=== PATIENT | male | born 1955 | race Two or more races ===

== ENCOUNTER 2024-07-20 09:59 | Emergency (ER) | payer MEDICARE, SELFPAY ==
[2024-07-20 10:00] VITALS: BMI 25.2
[2024-07-20 10:50] VITALS: BP 125/86; PULSE 69; RESP 16; TEMP 36.6; O2SAT 100; BMI 23.7
--- NOTE | 2024-07-20 10:50 | XR_ITS ---
Examination: Duplex scan of the lower extremity, unilateral left complete Date and time of exam: July 20, 2024 1243 hours INDICATIONS: Onset left leg pain beginning 3 days ago Technique: Duplex scan of the extremity veins using B-mode/grayscale imaging and Doppler spectral analysis and color flow Attention is directed to internal echogenicity, compression and augmentation involving these veins, color flow assessment, spectral analysis Findings: Major deep venous structures in the extremity demonstrate normal course and caliber. There is no evidence of deep vein thrombosis. Normal color flow and spectral analysis Impression: Negative for DVT..
--- NOTE | 2024-07-20 10:50 | XR_ITS ---
Examination: Foot, right, 3 views Technique: AP, oblique, lateral views foot, 3 views Date and time of exam: July 20, 2024 1102 hours INDICATIONS: Right foot swelling and pain beginning 3 days ago. FINDINGS: Moderate osteopenia Soft tissue vascular calcification Moderate narrowing first metatarsophalangeal joint No fracture No cortical bone destruction Mild to moderate osteoarthritis tibiotalar joint Mild osteoarthritis intertarsal joints including talonavicular joint No erosive arthritis IMPRESSION: Moderate osteopenia Moderate narrowing first metatarsophalangeal joint Mild to moderate osteoarthritis tibiotalar joint Mild osteoarthritis intertarsal joints including talonavicular joint
--- NOTE | 2024-07-20 10:50 | XR_ITS ---
EXAMINATION: Ankle, left 3 views . Technique: Ankle AP, oblique, lateral 3 views Date and time of exam: July 20, 2024 1102 hours INDICATIONS: Ankle swelling and pain beginning 3 days ago no trauma FINDINGS: Significant osteopenia Mild medial malleolar soft tissue swelling Mild to moderate osteoarthritis tibiotalar joint Mild osteoarthritis intertarsal joints including talonavicular joint Soft tissue vascular calcification No fracture No cortical bone destruction IMPRESSION: Mild to moderate osteoarthritis tibiotalar joint Mild osteoarthritis intertarsal joints including talonavicular joint
--- NOTE | 2024-07-20 13:08 | EDNOTE_ITS ---
<Statement entered by Danae Waddell MD - 07/22/24 15:27> As co-signing physician, I was present and available for consult prn. I concur with the plan and care as documented by the midlevel provider. Lower Extremity Injury RME/HPI General Chief Complaint: Ankle/Foot Injury Stated Complaint: LEFT ANKLE PAIN AND SWELLING NO INJURY Time Seen by Provider: 07/20/24 10:06 Arrival date/time: 07/20/24 09:59 69-year-old male presents emergency department with complaints of left ankle swelling patient reports no definite injury Limitations: no limitations Related Data Previous Rx's ?Medication ?Instructions ?Recorded meloxicam 7.5 mg tablet 7.5 mg PO QDAY 7 days #7 tabs 07/20/24 Allergies Allergy/AdvReac Type Severity Reaction Status Date / Time No Known Allergies Allergy Verified 07/20/24 10:02 Review of Systems Review of Systems Systems Reviewed: All systems reviewed, normal except as documented Constitutional Constitutional: Reports system reviewed and no additional complaints, except as documented, Denies fever(s) and Denies headache(s) Eyes Eyes: Reports system reviewed and no additional complaints, except as documented and Denies blurry vision ENT Ears, Nose, Mouth, and Throat: Reports system reviewed and no additional complaints, except as documented, Denies headache(s), Denies nasal congestion and Denies nasal discharge Cardiovascular Cardiovascular: Reports system reviewed and no additional complaints, except as documented, Denies chest pain and Denies dyspnea Respiratory Respiratory: Reports system reviewed and no additional complaints, except as documented, Denies chest congestion, Denies cough and Denies dyspnea Gastrointestinal Gastrointestinal: Reports system reviewed and no additional complaints, except as documented and Denies abdominal pain Musculoskeletal Musculoskeletal: Reports system reviewed and no additional complaints, except as documented, Reports abnormal gait, Reports arthralgias, Denies deformity, Reports joint swelling, Reports stiffness and Denies tingling Integumentary/Breasts Skin/Breast: Reports system reviewed and no additional complaints, except as documented and Denies rash Neurologic Neurologic: Reports system reviewed and no additional complaints, except as documented, Reports as per HPI, Reports abnormal gait, Denies headache(s) and Denies tingling Past Medical History Past Medical History NEUROLOGIC: Negative Neurological Disorders CARDIAC: Negative Cardiac Disorders Social History SMOKING STATUS: Never smoker ED Exam General Limitations: Present no limitations General appearance: Present alert and in no apparent distress Head Head exam: Present atraumatic Eye Eye exam: Present normal appearance, PERRL and EOMI ENT ENT exam: Present normal exam, normal oropharynx and mucous membranes moist Neck Neck exam: Present normal inspection, full ROM and trachea midline Chest Chest inspection: Present normal inspection and symmetric chest wall rise Respiratory Respiratory exam: Present normal lung sounds bilaterally Cardiovascular Cardiovascular exam: Present regular rate, normal rhythm and normal heart sounds Abdominal Exam Abdominal exam: Present soft and normal bowel sounds Extremities Exam Extremities exam: Present full ROM, normal capillary refill and joint swelling; Absent pedal edema or calf tenderness Back Exam Back exam: Present normal inspection and full ROM Neurological Exam Neurological exam: Present alert, oriented X3 and CN II-XII intact Psychiatric Psychiatric exam: Present normal affect and normal mood Skin Skin exam: Present warm, dry, intact and normal color Course Quality Measures none Orders Category Date Time Status US venous doppler LE LT Stat Exams 07/20/24 10:50 Completed XR ankle comp LT min 3V Stat Exams 07/20/24 10:50 Completed XR foot comp LT min 3V Stat Exams 07/20/24 10:50 Completed Vital Signs Vital signs: Vital Signs Temperature 97.8 F 07/20/24 10:50 Pulse Rate 69 07/20/24 10:50 Respiratory Rate 16 07/20/24 10:50 Blood Pressure 125/86 H 07/20/24 10:50 Pulse Oximetry (%) 100 07/20/24 10:50 Oxygen Delivery Method Room Air 07/20/24 10:50 O2 saturation 100% r/a wnl Extremity Injury, Lower MDM Narrative MDM Narrative:: 69-year-old male presents emergency department with complaints of left ankle swelling patient reports no definite injury On exam patient does not appear ill or toxic in no acute distress On exam patient has mild swelling of left ankle X-ray of the left ankle and foot obtained as well as ultrasound left lower extremity No acute fracture noted no DVT noted Patient discharged home in no distress to follow-up with primary care doctor in the next 24 to 48 hours and for any worsening symptoms to return to the ER immediately Patient data External records reviewed:: [facility] previous records Clinical information provided by:: patient Social determinants that could affect healthcare access:: none Patient has the following chronic illnesses:: History How is presenting disease/condition affected by chronic disease/condition?: no chronic disease Evaluation data The following diagnostics were reviewed and interpreted by me:: radiology exam(s) Lab and/or radiology exams considered but not ordered:: Radiology obtained Interpretation Summary: Given Medications / Prescriptions Medications or Prescriptions considered but not ordered:: Given Medication administrations:: Given Consultations Consultation(s) initiated? (list below): No Diagnosis Extremity Injury, Lower Differential Diagnosis: ankle sprain and strain and ankle fracture Most likely diagnosis given after review of the tests above:: Ankle sprain Admission Indicated Admission indicated?: not indicated Admission Request Was there a request for admission?: No Disposition Plan Disposition Plan: Discharge Discharge Attestation Discharge Attestation: The patient and all family members were given an opportunity to ask questions and understood the discharge instructions. Discharge instructions specifically effects, indications for sooner follow up or return to the emergency department, and the expected course of current diagnosis. Patient condition: Stable Discharge Plan Plan Patient Disposition: HOME (Self Care) Disposition Comment: Stable Prescriptions/Referrals Prescriptions/Med Rec: New meloxicam 7.5 mg tablet 7.5 mg PO QDAY 7 Days Qty: 7 0RF Referrals: Shannon Castro FNP [Primary Care Provider] - 07/21/24 Problem List Clinical Impression: Osteoarthritis of ankle, left Patient/Caregiver Discharge Instructions Education Materials: ED Osteoarthritis Additional Instructions: Please follow up with your primary care doctor in the next 24-48hrs for any worsening symptoms return here immediately Print Language: English Stand Alone Forms: Lexi Award Info., Patient Portal Info Letter SHREYAS/ANIKA Supervising Physician SHREYAS/ANIKA Supervising Physician: Dr. WADDELL
== END 2024-07-20 14:40 | disposition home or self-care (01) ==
PROVIDERS: Emergency Provider Emergency Medicine; PCP Registered Nurse Community Health
DX: M19.072 Primary osteoarthritis, left ankle and foot (principal)
CPT/HCPCS: 73610; 73630; 93971; 99284

== ENCOUNTER 2024-11-28 15:51 | Inpatient (IN) | payer MEDICARE, SELFPAY ==
[2024-11-28 15:52] VITALS: BMI 26.9
[2024-11-28 16:01] VITALS: BP 178/98; PULSE 73; RESP 20; TEMP 37.2; O2SAT 95
--- NOTE | 2024-11-28 16:03 | XR_ITS ---
Examination: Foot, right, 3 views Technique: AP, oblique, lateral views foot, 3 views Date and time of exam: November 28, 2024 1608 hours INDICATIONS: Right foot redness swelling and pain this week FINDINGS: Significant osteopenia Soft tissue vascular calcification Erosion distal first metatarsal noticed on the oblique view, stable compared to the September 03, 2021 exam No fracture Cortical erosions involve the ungual tuft tip distal phalanx first digit on the lateral view not seen on the prior study IMPRESSION: Osteomyelitis ungual tuft tip distal phalanx first digit, consider MRI foot without contrast follow-up
--- NOTE | 2024-11-28 16:04 | PD.EDANKLE ---
Lower Extremity Injury RME/HPI General Chief Complaint: Ankle/Foot Injury Stated Complaint: WOUND TO R FOOT HX DM Time Seen by Provider: 11/28/24 15:59 Arrival date/time: 11/28/24 15:51 This is a case of 69 year old male came in with 2nd toe right foot pain swelling redness and blister for 1 week patient is diabetic no injury nortrauma Related Data Allergies Allergy/AdvReac Type Severity Reaction Status Date / Time No Known Allergies Allergy Verified 11/28/24 15:52 Course Orders Category Date Time Status Wound Care NOW Care 11/28/24 16:03 Active XR foot comp RT min 3V Stat Exams 11/28/24 16:03 Ordered CBC Stat Lab 11/28/24 16:03 Ordered CMP [Comprehensive Metabolic Panel] Stat Lab 11/28/24 16:03 Ordered Vital Signs Vital signs: Vital Signs Temperature 98.9 F 11/28/24 16:01 Pulse Rate 73 11/28/24 16:01 Respiratory Rate 20 11/28/24 16:01 Blood Pressure 178/98 H 11/28/24 16:01 Pulse Oximetry (%) 95 11/28/24 16:01 Oxygen Delivery Method Room Air 11/28/24 16:01 Discharge Plan Patient/Caregiver Discharge Instructions Print Language: Barbadian
[2024-11-28 17:07] LABS: Basophils % (Auto) 1 % (0-2.5); Eosinophils # (Auto) 0.1 Thou/mm3 (0.0-0.5); Eosinophils % (Auto) 2 % (0-10); Hematocrit 38.5 % (41.0-53.0); Hemoglobin 13.8 g/dL (13.5-16.0); Immature Granulocytes % (Auto) 0 % (0-0); Immature Granulocytes Auto 0.02 Thou/mm3 (0.00-0.00); Lymphocytes # (Auto) 1.7 Thou/mm3 (1.0-4.8); Lymphocytes % (Auto) 26 % (10-50); Mean Corpuscular HGB Conc 35.8 g/dl (31.0-37.0); Mean Corpuscular Hemoglobin 32.9 pg (25.0-35.0); Mean Corpuscular Volume 92 fL (80-100); Monocytes # (Auto) 0.4 Thou/mm3 (0.0-0.8); Monocytes % (Auto) 5 % (0-12); Neutrophils # (Auto) 4.4 Thou/mm3 (1.8-7.7); Neutrophils % (Auto) 66 % (37-80); Nucleated Red Blood Cell % 0 /100 WBC (0); Platelet Count 224 Thou/mm3 (140-440); RDW Standard Deviation 40.9 fL (35.1-43.9); Red Blood Count 4.19 Miln/mm3 (4.50-5.90); White Blood Count 6.7 Thou/mm3 (3.8-10.6)
[2024-11-28 17:21] LABS: Alanine Aminotransferase 24 U/L (10-49); Albumin, Serum 4.2 gm/dL (3.4-4.8); Albumin/Globulin Ratio 1.4 (1.2-2.2); Alkaline Phosphatase 92 U/L (46-116); Anion Gap 9 (7-16); Aspartate Amino Transferase 25 U/L (0-34); BUN/Creatinine Ratio 19 Ratio (12-20); Bilirubin,Total 0.6 mg/dL (0.3-1.2); Blood Urea Nitrogen 17 mg/dL (9-23); Calcium 9.3 mg/dL (8.3-10.6); Calcium (Corrected) 9.3 mg/dL (8.5-10.1); Carbon Dioxide 25.6 mMol/L (20.0-31.0); Chloride 100 mMol/L (98-107); Creatinine (Component) 0.9 mg/dL (0.6-1.3); Estimated Creatinine Clearance 73.4 mL/min (>60); Globulin 3.1 gm/dL (2.3-3.5); Glucose 235 mg/dL (74-106); Osmolality,Calculated 279 (275-295); Potassium 4.2 mMol/L (3.4-5.1); Sodium 135 mMol/L (136-145); Total Protein 7.3 gm/dL (5.7-8.2); eGFR > 60 See Note
--- NOTE | 2024-11-28 17:35 | EDNOTE_ITS ---
Lower Extremity Injury RME/HPI General Chief Complaint: Ankle/Foot Injury Stated Complaint: WOUND TO R FOOT HX DM Time Seen by Provider: 11/28/24 15:59 Arrival date/time: 11/28/24 15:51 This is a case of 69 year old male came in with pain on the first second and third toe right foot for 1 week with blisters patient is diabetic Limitations: no limitations Related Data Allergies Allergy/AdvReac Type Severity Reaction Status Date / Time No Known Allergies Allergy Verified 11/28/24 15:52 Review of Systems Review of Systems Systems Reviewed: All systems reviewed, normal except as documented Constitutional Constitutional: Reports system reviewed and no additional complaints, except as documented, Reports as per HPI, Denies chills and Denies fever(s) Cardiovascular Cardiovascular: Reports system reviewed and no additional complaints, except as documented, Reports as per HPI, Denies chest pain, Denies chest pain at rest and Denies dyspnea Respiratory Respiratory: Reports system reviewed and no additional complaints, except as documented, Denies chest congestion, Denies cough and Denies dyspnea Gastrointestinal Gastrointestinal: Reports system reviewed and no additional complaints, except as documented, Reports as per HPI and Denies abdominal pain Musculoskeletal Musculoskeletal: Reports system reviewed and no additional complaints, except as documented, Reports as per HPI, Reports arthralgias and Reports joint swelling Integumentary/Breasts Skin/Breast: Reports system reviewed and no additional complaints, except as documented, Reports as per HPI, Reports change in pigmentation, Reports erythema, Reports lesions, Reports non-healing lesions, Reports skin pain, Reports skin swelling and Reports wounds Neurologic Neurologic: Reports system reviewed and no additional complaints, except as documented and Reports as per HPI Past Medical History Past Medical History NEUROLOGIC: Negative Neurological Disorders CARDIAC: Negative Cardiac Disorders Social History SMOKING STATUS: Never smoker ED Exam General Limitations: Present no limitations General appearance: Present alert and in no apparent distress Head Head exam: Present atraumatic and normocephalic Eye Eye exam: Present normal appearance, PERRL and EOMI ENT ENT exam: Present normal exam, normal oropharynx and mucous membranes moist Neck Neck exam: Present normal inspection, full ROM and trachea midline Chest Chest inspection: Present normal inspection and symmetric chest wall rise Respiratory Respiratory exam: Present normal lung sounds bilaterally Cardiovascular Cardiovascular exam: Present regular rate, normal rhythm and normal heart sounds Abdominal Exam Abdominal exam: Present soft and normal bowel sounds Extremities Exam Extremities exam: Present normal inspection, full ROM, tenderness, normal capillary refill and other (Noted a blister on the left first second third toe of the right vacuum pan tender to touch redness noted on the toes and dis no calf tenderness motor or sensory reflex or normaltal third of the right foot mild swelling no abscess no cellulitis ROM still intact); Absent calf tenderness Expanded Lower Extremity Exam Hip/Pelvis exam: Present normal inspection and full ROM; Absent tenderness, swelling, deformity, crepitus or dislocation Back Exam Back exam: Present normal inspection and full ROM Neurological Exam Neurological exam: Present alert, oriented X3 and CN II-XII intact Psychiatric Psychiatric exam: Present normal affect and normal mood Skin Skin exam: Present warm, dry, intact and normal color Course Quality Measures none Orders Category Date Time Status COVID-19 Screening Questionnaire NOW Care 11/28/24 17:37 Active Decision to Admit X1 Care 11/28/24 17:37 Active Wound Care NOW Care 11/28/24 16:03 Active XR foot comp RT min 3V Stat Exams 11/28/24 16:03 Completed CBC Stat Lab 11/28/24 16:37 Completed CMP [Comprehensive Metabolic Panel] Stat Lab 11/28/24 16:37 Completed Clindamycin/Ns 600 mg Ivpb [Cleocin/Ns Ivpb] Med 11/28/24 17:45 Active 600 mg in 50 ml IV X1 Sodium Chloride 0.9% 1000 ml [Ns] 1,000 ml Med 11/28/24 17:44 Active IV 999 mls/hr Vital Signs Vital signs: Vital Signs Temperature 98.9 F 11/28/24 16:01 Pulse Rate 73 11/28/24 16:01 Respiratory Rate 20 11/28/24 16:01 Blood Pressure 178/98 H 11/28/24 16:01 Pulse Oximetry (%) 95 11/28/24 16:01 Oxygen Delivery Method Room Air 11/28/24 16:01 Oxygen saturation by 95 percent WNL Extremity Injury, Lower MDM Narrative MDM Narrative:: This is a case of 69 year old male came in with pain on the first second and third toe right foot for 1 week with blisters patient is diabetic Physical examination patient is awake alert oriented not in distress nontoxic looking vital signs stable patient is afebrile Noted a blister on the left first second third toe of the right vacuum pan tender to touch redness noted on the toes and dis no calf tenderness motor or sensory reflex or normaltal third of the right foot mild swelling no abscess no cellulitis ROM still intact Blood test showed no leukocytosis no anemia CMP showed kidney and liver function is normal hyponatremia sodium was 135 normal potassium patient glucose is 235 and anion gap is normal and thus patient is not having DKA Patient x-ray of the right foot showed osteomyelitis Decision to admit was made spoke to Dr. Avilez discussed patient condition and physical examination reviewed the blood test and x-ray result and agreed that the patient need to be admitted for IV antibiotics and possible Ortho consult patient was started on bolus normal saline and given clindamycin IV. Discussed with the patient admission and agreed Patient data External records reviewed:: [facility] previous records Clinical information provided by:: patient Social determinants that could affect healthcare access:: none Patient has the following chronic illnesses:: diabetes How is presenting disease/condition affected by chronic disease/condition?: no chronic disease Evaluation data The following diagnostics were reviewed and interpreted by me:: lab results and radiology exam(s) Lab and/or radiology exams considered but not ordered:: reviewed Interpretation Summary: reviewed Medications / Prescriptions Medications or Prescriptions considered but not ordered:: given Medication administrations:: Medication Administration History Sodium Chloride (Ns) 1,000 mls @ 999 mls/hr IV .Q1H1M ONE Stop: 11/28/24 18:44 Clindamycin/Sodium Chloride (Cleocin/Ns Ivpb) 600 mg in 50 mls @ 100 mls/hr IV X1 ONE Stop: 11/28/24 18:14 given Consultations Consultation(s) initiated? (list below): Yes Consultation #1 (Physician, Specialty, Details): spoke to dr avilez for admission Time: 17:35 Diagnosis Extremity Injury, Lower Differential Diagnosis: puncture wound of foot and fracture of toe Most likely diagnosis given after review of the tests above:: osteomyeliyis Admission Indicated Admission indicated?: indicated Explain why admission is indicated or not indicated:: osteomyelitis Admission Request Was there a request for admission?: Yes Admission Attestation Admission request attestation: Discussed case with [] from Hospitalist service regarding admission. Discussed patients ED course, exam findings, labs, and radiology results. The Hospitalist [agrees,declines] to accept the patient for admission. Disposition Plan Disposition Plan: Admit Discharge Plan Plan Patient Disposition: Admit Acute Care w/in Hospital Patient condition on transfer: Stable Prescriptions/Referrals Referrals: No Primary/Family,Physician [Primary Care Provider] - In 1 week Problem List Clinical Impression: Osteomyelitis Patient/Caregiver Discharge Instructions Print Language: Turkish Stand Alone Forms: Lexi Award Info., Patient Portal Info Letter PA/CHRONIC DISEASE EPIDEMIOLOGIST Supervising Physician PA/CHRONIC DISEASE EPIDEMIOLOGIST Supervising Physician: dr sun
--- NOTE | 2024-11-28 18:06 | PD.RESHP ---
Documentation for date of: 11/28/24 HPI History of Present Illness History of present illness: Chief complaint: Right foot toes discomfort and deformity HPI: Mr. Jacobo is a 69-year-old Ghanaian-speaking male with past medical history of type II bov-eqntyrv-avmbohyuk diabetes mellitus, who was seen in the ED for RT foot first digit deformity and discomfort on walking. Patient was advised by his family to get his foot examined after noticing worsening shape and mild swelling around the ball of the foot. Per patient, he noticed that his big toe did not look the same as his left foot big toe since yesterday. He is however able to ambulate comfortably, bear weight and denies any trauma to the toe. He denies any fevers or chills, or other systemic symptoms at this time. He endorses being otherwise in good health with no changes from baseline. In the ED, vitals remarkable only for high blood pressure 178/98. Initial laboratory workup within normal limits. On imaging, foot x-ray remarkable for Osteomyelitis ungual tuft tip distal phalanx first digit. Patient was informed of the findings, shows comprehension. Endorses full compliance with his diabetes medications at home. Patient was admitted for the work-up and management of acute diverticulitis of the right foot first phalanx. Will start on IV antibiotics and get infectious disease on board for further evaluation. Past medical history: Type II zcx-mqhdivp-woseckpct diabetes mellitus Medication list: Metformin -not sure about dose, will get med rec Past surgical history: Nil Allergies: NKFDA Social history: Marital?Status:? Tobacco?Use:?Denies ETOH?Use:?Socially Drug?Note:?Denies Social?History?Note:?Lives?at home with family Family history: Denies any family history of sudden cardiac , strokes or cancers. Review of Systems Review of Systems Narrative Review of Systems: GENERAL: Denies fevers/chills, diaphoresis. HEENT: Denies headache or visual/hearing changes. Denies nasal discharge. NEURO: Denies unusual weakness or difficulty speaking. CARDIO: Denies chest pain, palpitations. PULM: Denies SOB, cough, wheezing. GI: Denies abdominal pain, no N/V, no C/D. Reports having BMs URO: Denies burning/itching/pain/urinary changes. MSK/EXT/SKIN: Right foot fourth digit deformity, mild discomfort PSYCH: Cooperative, pleasant mood & affect. The rest of the review of systems is otherwise negative. Exam Vital Signs Temp Pulse Resp BP Pulse Ox O2 Del Method 98.9 F 73 20 178/98 H 95 Room Air 11/28/24 16:01 11/28/24 16:01 11/28/24 16:01 11/28/24 16:01 11/28/24 16:01 11/28/24 16:01 Narrative Exam Constitutional Alert, oriented x3 and comfortable. Ghanaian-speaking HEENT Vision grossly intact. Patent nares. Trachea midline. Respiratory Chest normal on inspection and clear to auscultation bilaterally. Cardiovascular S1 and S2 audible, RRR. No murmurs or carotid bruit. No gross JVD. Abdominal Soft and BS + ; non tender to palpation in all quadrants. Genitourinary No bladder tenderness, no flank pain. Normal to palpation. Musculoskeletal Extremities tone within normal limits. No LE edema. Right foot first phalanx deformed, mild swelling around the metatarsal joint Neurological CN II - XII grossly intact. Extremity motor and sensation grossly intact. Skin Warm, dry and intact. No apparent lesions. Psychiatric Patient has a good affect, is cooperative. Results: Labs 11/29/24 05:10 11/29/24 05:10 Labs: Short CBC 11/28/24 Range/Units 16:37 WBC 6.7 (3.8-10.6) Thou/mm3 Hgb 13.8 (13.5-16.0) g/dL Hct 38.5 L (41.0-53.0) % Plt Count 224 (140-440) Thou/mm3 BMP 11/28/24 16:37 Sodium 135 L Potassium 4.2 Chloride 100 Carbon Dioxide 25.6 BUN 17 Creatinine 0.9 Glucose 235 H Calcium 9.3 Liver Function 11/28/24 Range/Units 16:37 Total Bilirubin 0.6 (0.3-1.2) mg/dL AST 25 (0-34) U/L ALT 24 (10-49) U/L Alkaline Phosphatase 92 (46-116) U/L Albumin 4.2 (3.4-4.8) gm/dL Quality Measures Quality Measures none Advance care planning discussed with:: patient Medications Home Medications and Allergies Home Medications ?Medication ?Instructions ?Recorded ?Confirmed ?Type No Known Home Medications 11/29/24 11/29/24 History Allergies Allergy/AdvReac Type Severity Reaction Status Date / Time No Known Allergies Allergy Verified 11/28/24 15:52 Visit Medications Acetaminophen (Acetaminophen 325 Mg Tablet) 1,000 mg PO Q6H PRN PRN Reason: Fever >101.5 Stop: 12/28/24 17:58 Hydrocodone Bitart/Acetaminophen (Hydrocodone/Apap 10/325 Tab) 1 tab PO Q4H PRN PRN Reason: PAIN SCALE 4-10(Mod-Sev Stop: 12/03/24 17:58 Dextrose (Dextrose 50%-Water Inj 50 Ml Syringe) 50 ml IV Q15MIN PRN PRN Reason: BG <50 OR BG <70 & pt unresponsive Stop: 12/28/24 17:58 Doxycycline Hyclate (Doxycycline 100 Mg Tablet) 100 mg PO BID DAR Stop: 12/05/24 20:59 Famotidine (Famotidine Inj 10 Mg/Ml Vial 2 Ml) 20 mg IVP Q12HR DAR Stop: 12/28/24 20:59 Glucagon (Glucagon Inj 1 Mg Vial) 1 mg IM Q15MIN PRN PRN Reason: BG <70, and no IV access Sodium Chloride (Ns) 1,000 mls @ 999 mls/hr IV .Q1H1M ONE Stop: 11/28/24 18:44 Clindamycin/Sodium Chloride (Cleocin/Ns Ivpb) 600 mg in 50 mls @ 100 mls/hr IV X1 ONE Stop: 11/28/24 18:14 Ceftriaxone Sodium/Dextrose (Rocephin/D5w 1gm Iv Premix) 1 gm in 50 mls @ 100 mls/hr IV QDAY DAR Stop: 12/05/24 18:04 Insulin Human Lispro (Insulin Lispro (Admelog) 1 Unit/0.01 Ml Unit) 0 unit SC AC DAR; Protocol Stop: 12/29/24 07:29 Ondansetron HCl (Ondansetron Inj 2 Mg/Ml Inj 2 Ml) 4 mg IVP Q6H PRN; Protocol PRN Reason: NAUSEA OR VOMITING Stop: 12/28/24 17:58 Assessment & Plan Plan Mr. Jacobo is a 69-year-old Ghanaian-speaking male admitted for osteomyelitis of the right foot first phalanx. Infectious disease consulted for further recommendations. Right first phalanx osteomyelitis Present with acute deformity of the right first phalanx with mild discomfort. Patient only noticed this 1 day ago, however family insisted that he get it examined Denies any fever chills or systemic symptoms at this time. Foot x-ray: Osteomyelitis ungual tuft tip distal phalanx first digit. Plan: ? Doxycycline p.o. 100 mg twice daily (11/28? ? Ceftriaxone 1 g daily (11/28? ? Infectious disease consulted, lipomata recommendations ? Blood cultures ordered we will follow-up results ? ESR and CRP ordered for a.m. draw ? Will follow-up lipid panel, A1c, TSH on a.m. draw Hypertensive urgency Blood pressure on admission 178/98 Follow-up blood pressure 179/85 in the next 1 hour Denies any past history of primary hypertension Plan: ? IV hydralazine 10 mg every 6 hours as needed for SBP > 165, with parameters to hold if HR > 99 ? Will consider JIL/ARB if blood pressure continues to be > 120/80. RFT within normal limits at this time ? Will follow-up lipid panel, A1c, TSH for a.m. draw Type II plw-vctxxfn-hcdlivbdx diabetes mellitus History of type 2 jbq-rillcxg-vidfjuone diabetes x 8 years Home medication: Metformin, 1 tablet twice a day. Endorses full compliance with medications as prescribed Plan: - Started normal insulin sliding scale with Accu-Checks - Carb consistent low diet - Hypoglycemia protocol in place - HbA1c ordered for a.m. draw - Will try to prescribe continuous glucose monitor on discharge if possible, for optimization Health maintenance: Disposition: MedSurg on IV antibiotics for osteomyelitis. ID recommendations pending Diet: Carb consistent low Lines: pIVs GI Prophylaxis: Famotidine 20 mg every 12 hours Thrombo Prophylaxis: SCDs, ambulate as tolerated Code status: FULL CODE Plan of care discussed with attending Luis Nguyen M.D. PGY2 Disclaimer: Minor errors in spinner concrete pipe may be present as this note was dictated using voice recognition software. Attending Provider Attestation/Addendum Keila Richardson, , attest that I was physically present for the michael portions of the service and evaluated the patient with the resident and I reviewed and discussed the case with the resident and agree with the resident's findings and plans of care as documented above Patient is a 69-year-old male with past medical history of NIDDM who presented to the ED due to deformity in his right foot. Patient endorses having issues with ambulation. He states that it was noted by his family his big toe appeared abnormal with a bulge over the medial eminence of the first metatarsal head. He otherwise denies any fevers or chills. It appears somewhat erythematous, but no tenderness to palpation. Patient denies any trauma to the foot that may have resulted in this deformity. In the ED, a foot x-ray was done showing osteomyelitis of the ungual tuft tip of the distal phalanx of the first digit. Patient has been afebrile with somewhat elevated blood pressure and no leukocytosis. Glucose is noted to be 235 but rest of labs appear unremarkable. Will admit patient to [facility] for further workup osteomyelitis. Will start patient on doxycycline and Rocephin at this time. Will order blood cultures to rule out hematogenous spread of osteomyelitis. Will order A1c.
[2024-11-28 18:41] VITALS: BP 179/85; PULSE 63; RESP 17; TEMP 37.1; O2SAT 97
[2024-11-28] MEDS: cefTRIAXone/D5w 1gm IV premix 1 GM/50 ML BAG IV (19:37)
[2024-11-28] MEDS: SODIUM CHLORIDE 0.9% 1000 ML 1,000 ML 999 ML IV (19:38)
[2024-11-28 19:48] VITALS: BP 167/84; PULSE 60; RESP 18; TEMP 36.8; O2SAT 98
[2024-11-28] MEDS: CLINDAMYCIN/NS 600 MG IVPB 600 MG/50 ML BAG 100 MG IV (20:02)
--- NOTE | 2024-11-28 20:09 | PC.NURSE ---
Report given Adalberto Flowers Med-surg
[2024-11-28 20:30] VITALS: BMI 26.3
[2024-11-28 20:53] VITALS: BP 171/85; PULSE 64; RESP 19; TEMP 36.3; O2SAT 99
[2024-11-28] MEDS: DOXYCYCLINE 100 MG TABLET PO (21:14)
[2024-11-28] MEDS: FAMOTIDINE INJ 10 MG/ML VIAL 2 ML 20 MG IVP (21:14)
[2024-11-28 21:27] VITALS: BP 171/85; PULSE 64
[2024-11-28] MEDS: hydrALAZINE INJ 20 MG/ML VIAL 10 MG IVP (21:27)
[2024-11-29] VITALS (7 sets, daily range): BP systolic 137–158; BP diastolic 76–88; PULSE 65–76; RESP 16–18; TEMP 36.2–36.5; O2SAT 96–98
[2024-11-29 06:42] LABS: Basophils % (Auto) 1 % (0-2.5); Eosinophils # (Auto) 0.2 Thou/mm3 (0.0-0.5); Eosinophils % (Auto) 3 % (0-10); Hematocrit 37.9 % (41.0-53.0); Hemoglobin 13.1 g/dL (13.5-16.0); Immature Granulocytes % (Auto) 0 % (0-0); Immature Granulocytes Auto 0.01 Thou/mm3 (0.00-0.00); Lymphocytes # (Auto) 1.6 Thou/mm3 (1.0-4.8); Lymphocytes % (Auto) 32 % (10-50); Mean Corpuscular HGB Conc 34.6 g/dl (31.0-37.0); Mean Corpuscular Hemoglobin 32.9 pg (25.0-35.0); Mean Corpuscular Volume 95 fL (80-100); Monocytes # (Auto) 0.4 Thou/mm3 (0.0-0.8); Monocytes % (Auto) 8 % (0-12); Neutrophils # (Auto) 2.9 Thou/mm3 (1.8-7.7); Neutrophils % (Auto) 57 % (37-80); Nucleated Red Blood Cell % 0 /100 WBC (0); Platelet Count 246 Thou/mm3 (140-440); RDW Standard Deviation 42.5 fL (35.1-43.9); Red Blood Count 3.98 Miln/mm3 (4.50-5.90); White Blood Count 5.1 Thou/mm3 (3.8-10.6)
[2024-11-29 07:06] LABS: Sed Rate (ESR) 8 mm/hr (0-20)
[2024-11-29 07:56] LABS: Albumin, Serum 3.8 gm/dL (3.4-4.8); Anion Gap 9 (7-16); BUN/Creatinine Ratio 14 Ratio (12-20); Blood Urea Nitrogen 13 mg/dL (9-23); C-Reactive Protein < 0.5 mg/dL (0.0-0.9); Calcium 8.7 mg/dL (8.3-10.6); Calcium (Corrected) 8.9 mg/dL (8.5-10.1); Carbon Dioxide 27.6 mMol/L (20.0-31.0); Cardiac Risk Estimate 3.6 RATIO (4.0-6.7); Chloride 103 mMol/L (98-107); Cholesterol 198 mg/dL (132-200); Creatinine (Component) 0.9 mg/dL (0.6-1.3); Estimated Creatinine Clearance 73.4 mL/min (>60); Glucose 281 mg/dL (74-106); HDL Cholesterol 55 mg/dL (40-60); LDL Cholesterol,Calculated 117 mg/dL (0-130); Osmolality,Calculated 289 (275-295); Phosphorous 2.6 mg/dL (2.4-5.1); Potassium 4.3 mMol/L (3.4-5.1); Sodium 140 mMol/L (136-145); Triglycerides 128 mg/dL (30-150); eGFR > 60 See Note
[2024-11-29] MEDS: cefTRIAXone/D5w 1gm IV premix 1 GM/50 ML BAG IV (08:02)
[2024-11-29] MEDS: DOXYCYCLINE 100 MG TABLET PO ×2 (08:03→20:51)
[2024-11-29] MEDS: INSULIN LISPRO (AdmeLOG) 1 UNIT/0.01 ML UNIT SC ×3 (08:03→17:58)
[2024-11-29] MEDS: FAMOTIDINE INJ 10 MG/ML VIAL 2 ML 20 MG IVP ×2 (08:03→20:51)
[2024-11-29 08:12] LABS: Thyroid Stimulating Hormone 2.15 uIU/mL (0.55-4.78)
[2024-11-29 08:28] LABS: Glucose Estimated Average 229 mg/dL (80-131); Hemoglobin A1C 9.6 % Hgb (4.8-6.0)
--- NOTE | 2024-11-29 09:39 | XR_ITS ---
Examination: MRI right foot, without contrast Date and time of exam: November 29, 2024 1221 hours INDICATIONS: Right foot first digit deformity discomfort with walking swelling around the base of the foot this week Technique: Multiple axial sagittal and coronal images of the right foot have been obtained with the Siemens high-resolution 1.5 Cyndi MRI scanner. Images obtained include T2-weighted fat-suppressed sagittal sections, TR 3500, TE 46, T2 weighted coronal fat suppressed images, TR 3050, TE 84, T2-weighted transverse fat suppressed images, TR 3260, TE 63, proton density transverse images, TR 4720 TE 46, and T1 weighted coronal images, TR 560, TE 13. Findings: Cortical erosions involve the ungual tuft tip distal phalanx first digit with soft tissue infection surrounding the first digit, no soft tissue abscess No fracture No foreign body Marked thickening of the plantar fascia Biconvex thickening of the Achilles tendon Moderate narrowing tibiotalar joint IMPRESSION: Osteomyelitis ungual tuft tip distal phalanx first digit No soft tissue abscess Marked plantar fasciitis
[2024-11-29] MEDS: LOSARTAN POTASSIUM 25 MG TABLET PO (12:33)
[2024-11-29] MEDS: INSULIN GLARGINE (Lantus) 5 UNIT/0.05 ML (PER 5 UNITS) SC (12:35)
--- NOTE | 2024-11-29 13:03 | PD.RESPRO ---
Documentation for date of: 11/29/24 Subjective Subjective Interval history: Patient was seen and examined at bedside this AM. No acute events overnight. Patient tolerating diet, adequate urine output and mentation is at baseline. Blood pressure on admission 170/80s --> 150/90s after Hydralazine 10mg x1 overnight A1c 9.6% ; Per family at bedside,patient has not been compliant with any of his home medications for DM. WBC has downtrended to wnl. Continues to deny any pain at the RT foot OM site. No discharge. Afebrile. Will get MRI RT foot to further evaluate OM Pending ID recommendations. Will get light out examiner to cruise counselor re: T2DM compliance. Exam Vital Signs Temp Pulse Resp BP Pulse Ox O2 Del Method 97.3 F 76 16 158/88 H 96 Room Air 11/29/24 08:00 11/29/24 12:33 11/29/24 08:00 11/29/24 12:33 11/29/24 08:00 11/29/24 08:00 Narrative Exam Constitutional Alert, oriented x3 and comfortable. Citizen Of [place]-speaking HEENT Vision grossly intact. Patent nares. Trachea midline. Respiratory Chest normal on inspection and clear to auscultation bilaterally. Cardiovascular S1 and S2 audible, RRR. No murmurs or carotid bruit. No gross JVD. Abdominal Soft and BS + ; non tender to palpation in all quadrants. Genitourinary No bladder tenderness, no flank pain. Normal to palpation. Musculoskeletal Extremities tone within normal limits. No LE edema. Right foot first phalanx deformed, mild swelling around the metatarsal joint Neurological CN II - XII grossly intact. Extremity motor and sensation grossly intact. Skin Warm, dry and intact. RT foot first and second toe skin abrasions. Psychiatric Patient has a good affect, is cooperative. Objective Labs 11/30/24 05:09 11/30/24 05:09 Labs: Laboratory Results - last 24 hr 11/28/24 11/29/24 16:37 05:10 WBC 6.7 5.1 RBC 4.19 L 3.98 L Hgb 13.8 13.1 L Hct 38.5 L 37.9 L MCV 92 95 MCH 32.9 32.9 MCHC 35.8 34.6 RDW Std Deviation 40.9 42.5 Plt Count 224 246 Neut % (Auto) 66 57 Lymph % (Auto) 26 32 Bladen % (Auto) 5 8 Eos % (Auto) 2 3 Baso % (Auto) 1 1 Neut # (Auto) 4.4 2.9 Lymph # (Auto) 1.7 1.6 Bladen # (Auto) 0.4 0.4 Eos # (Auto) 0.1 0.2 Baso # (Auto) 0.0 0.0 Immature Gran # (Auto) 0.02 H 0.01 H Absolute Nucleated RBC 0.00 0.00 Immature Gran % 0 0 Nucleated RBC % 0 0 ESR 8 Sodium 135 L 140 Potassium 4.2 4.3 Chloride 100 103 Carbon Dioxide 25.6 27.6 Anion Gap 9 9 BUN 17 13 Creatinine 0.9 0.9 Estim Creat Clear Calc 73.4 73.4 eGFR > 60 > 60 BUN/Creatinine Ratio 19 14 Glucose [address] Glu mg/dL 229 H Hemoglobin A1c 9.6 H Calculated Osmolality 279 289 Calcium 9.3 8.7 Corrected Calcium 9.3 8.9 Phosphorus 2.6 Total Bilirubin 0.6 AST 25 ALT 24 Alkaline Phosphatase 92 C-Reactive Prot, Quant < 0.5 Total Protein 7.3 Albumin 4.2 3.8 Globulin 3.1 Albumin/Globulin Ratio 1.4 Triglycerides 128 Cholesterol 198 LDL Cholesterol, Calc 117 HDL Cholesterol 55 Cholesterol/HDL Ratio 3.6 L TSH 2.15 Quality Measures Quality Measures none Advance care planning discussed with:: patient Assessment & Plan Assessment Current Active Medications: Generic Name Dose Route Start Last Admin Trade Name Freq PRN Reason Stop Dose Admin Acetaminophen 1,000 mg 11/29/24 08:15 Acetaminophen 325 Mg Tablet PO 12/28/24 17:58 Q6H PRN Fever >99 OR PAIN 1-3 Hydrocodone Bitart/Acetaminophen 1 tab 11/28/24 17:59 Hydrocodone/Apap 10/325 Tab PO 12/03/24 17:58 Q4H PRN PAIN SCALE 4-10(Mod-Sev Dextrose 50 ml 11/28/24 17:59 Dextrose 50%-Water Inj 50 Ml Syringe IV 12/28/24 17:58 Q15MIN PRN BG <50 OR BG <70 & pt unresponsive Doxycycline Hyclate 100 mg 11/28/24 21:00 11/29/24 08:03 Doxycycline 100 Mg Tablet PO 12/05/24 20:59 100 mg BID DAR Administration Famotidine 20 mg 11/28/24 21:00 11/29/24 08:03 Famotidine Inj 10 Mg/Ml Vial 2 Ml IVP 12/28/24 20:59 20 mg Q12HR DAR Administration Glucagon 1 mg 11/28/24 17:59 Glucagon Inj 1 Mg Vial IM Q15MIN PRN BG <70, and no IV access Hydralazine HCl 10 mg 11/28/24 19:05 11/28/24 21:27 Hydralazine Inj 20 Mg/Ml Vial IVP 12/28/24 19:14 10 mg Q6H PRN Administration SBP >165 Ceftriaxone Sodium/Dextrose 1 gm in 50 mls @ 100 mls/hr 11/28/24 18:05 11/29/24 08:02 Rocephin/D5w 1gm Iv Premix IV 12/05/24 18:04 100 mls/hr QDAY DAR Administration Insulin Glargine 10 unit 11/29/24 21:00 Insulin Glargine (Lantus) 5 Unit/0.05 Ml (Per 5 Units) SC 12/29/24 20:59 HS DAR Insulin Human Lispro 0 unit 11/29/24 07:30 11/29/24 12:34 Insulin Lispro (Admelog) 1 Unit/0.01 Ml Unit SC 12/29/24 07:29 1 unit AC DAR Administration Protocol Losartan Potassium 25 mg 11/29/24 09:00 11/29/24 12:33 Losartan Potassium 25 Mg Tablet PO 12/29/24 08:59 25 mg QDAY DAR Administration Ondansetron HCl 4 mg 11/28/24 17:59 Ondansetron Inj 2 Mg/Ml Inj 2 Ml IVP 12/28/24 17:58 Q6H PRN NAUSEA OR VOMITING Protocol Plan Mr. Jacobo is a 69-year-old Citizen [place]-speaking male admitted for osteomyelitis of the right foot first phalanx. Infectious disease consulted for further recommendations. Right first phalanx osteomyelitis Present with acute deformity of the right first phalanx with mild discomfort. Patient only noticed this 1 day ago, however family insisted that he get it examined Denies any fever chills or systemic symptoms at this time. Foot x-ray: Osteomyelitis ungual tuft tip distal phalanx first digit. 11/29: ESR and CRP : wnl Plan: ? Doxycycline p.o. 100 mg twice daily (11/28? ? Ceftriaxone 1 g daily (11/28? ? Infectious disease consulted, look forward to recommendations ? Blood cultures ordered we will follow-up results - Follow up MRI RT foot to confirm OM Hypertensive urgency Blood pressure on admission 170/80s --> 150/90s after Hydralazine 10mg x1 overnight Denies any past history of primary hypertension 11/29: Lipid panel, A1c, TSH : wnl Plan: - Started Losartan 50mg daily - PRN IV hydralazine 10 mg for SBP > 165, with parameters to hold if HR > 99 Type II wfm-bdyqsgr-hokwpxuuj diabetes mellitus History of type 2 yzm-zbcypwi-khwpeokyo diabetes x 8 years Home medication: Metformin, 1 tablet twice a day. Endorses full compliance with medications as prescribed 11/29: Hb A1c 9.6% Plan: - Started normal insulin sliding scale with Accu-Checks. Hypoglycemia protocol in place - Carb consistent low diet. - Per family at bedside,patient has not been compliant with any of his home medications for DM. - Will try to prescribe continuous glucose monitor on discharge if possible, for optimization Health maintenance: Disposition: MedSurg on IV antibiotics for osteomyelitis. ID recommendations pending Diet: Carb consistent low Lines: pIVs GI Prophylaxis: Famotidine 20 mg every 12 hours Thrombo Prophylaxis: SCDs, ambulate as tolerated Code status: FULL CODE Plan of care discussed with attending Luis Nguyen M.D. PGY2 Disclaimer: Minor errors in mining analyst may be present as this note was dictated using voice recognition software. Attending Provider Attestation/Addendum Dylan, Keila Matute DO, attest that I was physically present for the michael portions of the service and evaluated the patient with the resident and I reviewed and discussed the case with the resident and agree with the resident's findings and plans of care as documented above Patient seen and eval this a.m. Daughter and son are at bedside. They revealed that the patient admitted that he no longer takes any of his medications for blood pressure or his diabetes at home, hence his elevated A1c from 6.7-9.6. Patient has not follow-up with the PCP. Explained to patient that if he does not control his diabetes with medications or lifestyle changes, that the osteomyelitis that he has could worsen leading to poor wound healing or possibly amputation. Explained to patient that uncontrolled diabetes can also affect his nervous system and his vision. Explained that he should follow-up with the saas architect in the future for close follow-up. Recommend following up at the [facility] on discharge. ESR and CRP appear to be normal. Will order MRI to confirm evidence of osteomyelitis. Pending blood cultures. Blood pressure appears to be elevated. Will start patient losartan due to concern for diabetic nephropathy. Patient currently on 10 units of glargine for better blood glucose control. Will follow-up with ID recommendations regarding osteomyelitis. Continue with doxycycline and Rocephin at this time.
--- NOTE | 2024-11-29 14:45 | PC.SS ---
rounding note: MRI; 1-2 more days
--- NOTE | 2024-11-29 16:04 | PC.SS ---
Ricardo Jacobo is 69 year old male admitted to [facility] for Osteomyelitis Rt Food. SS conducted bedside contact with the patient to complete initial assessment and to discuss discharge planning.? SW used all precautionary measures to complete initial. Role and reason for the contact was explained to Ricardo. Pt is alert and oriented times 4. Pt gave verbal authorization for rolly Gallego to provide information for assessment. Pt son, Ricardo Jacobo JR was present and pt gave permission for him to stay. Patient confirmed demographic information and on facesheet and lives with family. Patient identifies rolly Gallego, as surrogate decision maker. Pt states prior to hospitalization he is able to complete ADL?s independently. Pt does not use walker or O2. Pt confirmed no history of mental health or substance abuse. Pts PCP is Shannon Castro. Pharmacy of choice is [facility]. Pt has diabetes but does not adhere to taking medications last medication was taken 2 months ago; pt stated he has glucose monitor. Pt does not have dialysis. ?Discharge options discussed and the pt return home. Family will provide transportation upon DC. No further intervention required at this time, social security specialist would be available to address any further concerns. DC Plan: Home Contact: rolly Gallego, Address: Confirmed on face sheet PCP: Shannon Castro
--- NOTE | 2024-11-29 16:07 | PC.SS ---
[place] [address] [place]
--- NOTE | 2024-11-29 16:34 | PC.SS ---
SS spoke with Leana, Registration updated address to include physical address
[2024-11-29] MEDS: INSULIN GLARGINE (Lantus) 5 UNIT/0.05 ML (PER 5 UNITS) 10 UNIT SC (20:51)
[2024-11-30] VITALS (8 sets, daily range): BP systolic 129–170; BP diastolic 70–90; PULSE 60–73; RESP 16–18; TEMP 36.2–37; O2SAT 95–99; BMI 26.4
[2024-11-30] MEDS: hydrALAZINE INJ 20 MG/ML VIAL 10 MG IVP (05:01)
[2024-11-30 05:44] LABS: Basophils % (Auto) 1 % (0-2.5); Eosinophils # (Auto) 0.3 Thou/mm3 (0.0-0.5); Eosinophils % (Auto) 5 % (0-10); Hematocrit 40.5 % (41.0-53.0); Hemoglobin 14.1 g/dL (13.5-16.0); Immature Granulocytes % (Auto) 0 % (0-0); Immature Granulocytes Auto 0.01 Thou/mm3 (0.00-0.00); Lymphocytes # (Auto) 1.8 Thou/mm3 (1.0-4.8); Lymphocytes % (Auto) 31 % (10-50); Mean Corpuscular HGB Conc 34.8 g/dl (31.0-37.0); Mean Corpuscular Volume 95 fL (80-100); Monocytes # (Auto) 0.4 Thou/mm3 (0.0-0.8); Monocytes % (Auto) 7 % (0-12); Neutrophils # (Auto) 3.3 Thou/mm3 (1.8-7.7); Neutrophils % (Auto) 56 % (37-80); Nucleated Red Blood Cell % 0 /100 WBC (0); Platelet Count 213 Thou/mm3 (140-440); RDW Standard Deviation 42.9 fL (35.1-43.9); Red Blood Count 4.27 Miln/mm3 (4.50-5.90); White Blood Count 5.9 Thou/mm3 (3.8-10.6)
[2024-11-30 06:11] LABS: Anion Gap 9 (7-16); BUN/Creatinine Ratio 16 Ratio (12-20); Blood Urea Nitrogen 16 mg/dL (9-23); Calcium 9.8 mg/dL (8.3-10.6); Calcium (Corrected) 9.8 mg/dL (8.5-10.1); Carbon Dioxide 25.6 mMol/L (20.0-31.0); Chloride 101 mMol/L (98-107); Estimated Creatinine Clearance 66.1 mL/min (>60); Glucose 178 mg/dL (74-106); Osmolality,Calculated 277 (275-295); Phosphorous 3.6 mg/dL (2.4-5.1); Sodium 136 mMol/L (136-145); eGFR > 60 See Note
[2024-11-30] MEDS: FAMOTIDINE INJ 10 MG/ML VIAL 2 ML 20 MG IVP ×2 (08:36→20:23)
[2024-11-30] MEDS: cefTRIAXone/D5w 1gm IV premix 1 GM/50 ML BAG IV (08:36)
[2024-11-30] MEDS: LOSARTAN POTASSIUM 25 MG TABLET PO (08:36)
[2024-11-30] MEDS: DOXYCYCLINE 100 MG TABLET PO ×2 (08:36→20:24)
[2024-11-30] MEDS: INSULIN LISPRO (AdmeLOG) 1 UNIT/0.01 ML UNIT SC ×3 (08:36→17:51)
[2024-11-30] MEDS: ACETAMINOPHEN 325 MG TABLET 1000 MG PO (08:39)
--- NOTE | 2024-11-30 10:36 | ESPR_ITS ---
Documentation for date of: 11/30/24 Subjective - Hospitalist Subjective Interval history: Patient seen and evaluated this AM. Right foot dressing is clean, dry and intact. Patient has no active complaints of fevers, chills, chest pain, shortness of breath, foot pain. Exam Vital Signs Temp Pulse Resp BP Pulse Ox O2 Del Method 97.1 F 60 18 170/89 H 97 Room Air 11/30/24 08:00 11/30/24 08:36 11/30/24 08:00 11/30/24 08:36 11/30/24 08:00 11/30/24 08:00 Narrative Gen: No acute distress HEENT: NCAT, PERRLOU, Sclera anicteric, conjunctiva noninjected, oral mucosa moist without erythema Neck: Supple, full range of motion, no LAD CV: RRR, no murmurs, rubs or gallops Resp: CTAB/L, no wheezing, rhonchi or rales GI: abdomen soft, bowel sounds noted, no tenderness to palpation, no guarding or rebound tenderness, no organomegaly Skin: clean, dry, no rashes, lesions or ecchymosis Ext: punctate lesion over distal aspect of right big toe, dry and without drainage. healed cut over third right digit. Dressing over right foot is CDI. Neuro: A&O x3, CN II- XII intact b/l, no focal neurological deficits Objective - Hospitalist Labs Diagram: 11/30/24 05:09 11/30/24 05:09 Labs: Laboratory Results - last 24 hr 11/30/24 05:09 WBC 5.9 RBC 4.27 L Hgb 14.1 Hct 40.5 L MCV 95 MCH 33.0 MCHC 34.8 RDW Std Deviation 42.9 Plt Count 213 D Neut % (Auto) 56 Lymph % (Auto) 31 [place] % (Auto) 7 Eos % (Auto) 5 Baso % (Auto) 1 Neut # (Auto) 3.3 Lymph # (Auto) 1.8 [place] # (Auto) 0.4 Eos # (Auto) 0.3 Baso # (Auto) 0.0 Immature Gran # (Auto) 0.01 H Absolute Nucleated RBC 0.00 Immature Gran % 0 Nucleated RBC % 0 Sodium 136 Potassium 4.0 Chloride 101 Carbon Dioxide 25.6 Anion Gap 9 BUN 16 Creatinine 1.0 Estim Creat Clear Calc 66.1 eGFR > 60 BUN/Creatinine Ratio 16 Glucose 178 H D Calculated Osmolality 277 Calcium 9.8 Corrected Calcium 9.8 Phosphorus 3.6 Albumin 4.0 Assessment & Plan Assessment: Mr. Jacobo is a 69-year-old Yoruba-speaking male admitted for osteomyelitis of the right foot first phalanx. Infectious disease consulted for further recommendations. Right first phalanx osteomyelitis Present with acute deformity of the right first phalanx with mild discomfort. Patient only noticed this 1 day ago, however family insisted that he get it examined Denies any fever chills or systemic symptoms at this time. Foot x-ray: Osteomyelitis ungual tuft tip distal phalanx first digit. MRI: Osteomyelitis ungual tuft tip distal phalanx first digit 11/29: ESR and CRP : wnl Plan: ? Doxycycline p.o. 100 mg twice daily (11/28? ? Ceftriaxone 1 g daily (11/28? ? Infectious disease consulted, look forward to recommendations ? Pending final c/s of blood cultures. - Repeat ESR and CRP in AM Hypertensive urgency Blood pressure on admission 170/80s --> 150/90s after Hydralazine 10mg x1 overnight Denies any past history of primary hypertension 11/29: Lipid panel, A1c, TSH : wnl Plan: - Started Losartan 50mg daily - PRN IV hydralazine 10 mg for SBP > 165, with parameters to hold if HR > 99 Type II fbr-qwvlimn-xsnnypfho diabetes mellitus History of type 2 ybl-qqntpfw-[id number] diabetes x 8 years Home medication: Metformin, 1 tablet twice a day. Endorses full compliance with medications as prescribed 11/29: Hb A1c 9.6% Plan: - Started normal insulin sliding scale with Accu-Checks. Hypoglycemia protocol in place - Carb consistent low diet. - Per family at bedside,patient has not been compliant with any of his home medications for DM. - Will try to prescribe continuous glucose monitor on discharge if possible, for optimization - counselled on medication compliance and diabetic education ordered Medication Noncompliance Health maintenance: Disposition: MedSurg on IV antibiotics for osteomyelitis. Pending blood cultures and ID recommendations Diet: Carb consistent low Lines: pIVs GI Prophylaxis: Famotidine 20 mg every 12 hours Thrombo Prophylaxis: SCDs, ambulate as tolerated Code status: FULL CODE Time Spent with Patient Time: Total time spent is greater than 50% in coordination of care (as documented) at patient's floor/unit and/or counseling patient: Time with patient: 25 - 35 minutes Reason for Continued Stay Reason for continued stay: further monitoring and IV antibiotics Quality Measures Quality Measures none Advance care planning discussed with:: patient and child
[2024-11-30] MEDS: INSULIN GLARGINE (Lantus) 5 UNIT/0.05 ML (PER 5 UNITS) 10 UNIT SC (20:24)
[2024-12-01] VITALS: BP 140/81; PULSE 75; RESP 18; TEMP 36.8; O2SAT 98
[2024-12-01 04:00] VITALS: BP 169/89; PULSE 69; RESP 16; TEMP 36.4; O2SAT 99
[2024-12-01 05:31] LABS: Basophils % (Auto) 0 % (0-2.5); Eosinophils # (Auto) 0.3 Thou/mm3 (0.0-0.5); Eosinophils % (Auto) 4 % (0-10); Hematocrit 43.2 % (41.0-53.0); Hemoglobin 15.3 g/dL (13.5-16.0); Immature Granulocytes % (Auto) 0 % (0-0); Immature Granulocytes Auto 0.02 Thou/mm3 (0.00-0.00); Lymphocytes # (Auto) 1.9 Thou/mm3 (1.0-4.8); Lymphocytes % (Auto) 28 % (10-50); Mean Corpuscular HGB Conc 35.4 g/dl (31.0-37.0); Mean Corpuscular Hemoglobin 33.1 pg (25.0-35.0); Mean Corpuscular Volume 94 fL (80-100); Monocytes # (Auto) 0.4 Thou/mm3 (0.0-0.8); Monocytes % (Auto) 6 % (0-12); Neutrophils # (Auto) 4.2 Thou/mm3 (1.8-7.7); Neutrophils % (Auto) 62 % (37-80); Nucleated Red Blood Cell % 0 /100 WBC (0); Platelet Count 229 Thou/mm3 (140-440); RDW Standard Deviation 42.6 fL (35.1-43.9); Red Blood Count 4.62 Miln/mm3 (4.50-5.90); White Blood Count 6.8 Thou/mm3 (3.8-10.6)
[2024-12-01 05:57] LABS: Sed Rate (ESR) 12 mm/hr (0-20)
[2024-12-01 06:15] LABS: Albumin, Serum 4.3 gm/dL (3.4-4.8); Anion Gap 11 (7-16); BUN/Creatinine Ratio 18 Ratio (12-20); Blood Urea Nitrogen 18 mg/dL (9-23); C-Reactive Protein < 0.5 mg/dL (0.0-0.9); Carbon Dioxide 22.8 mMol/L (20.0-31.0); Chloride 105 mMol/L (98-107); Estimated Creatinine Clearance 63.8 mL/min (>60); Glucose 203 mg/dL (74-106); Osmolality,Calculated 285 (275-295); Phosphorous 3.1 mg/dL (2.4-5.1); Procalcitonin 0.05 ng/ml (0.0-0.49); Sodium 139 mMol/L (136-145); eGFR > 60 See Note
[2024-12-01] MEDS: INSULIN LISPRO (AdmeLOG) 1 UNIT/0.01 ML UNIT SC ×2 (07:43→12:27)
[2024-12-01 08:00] VITALS: BP 140/78; PULSE 70; RESP 17; TEMP 36.2; O2SAT 97
[2024-12-01 08:53] LABS: Hepatitis C Antibody Non Reactive (Non React)
[2024-12-01] MEDS: cefTRIAXone/D5w 1gm IV premix 1 GM/50 ML BAG IV (09:11)
[2024-12-01] MEDS: DOXYCYCLINE 100 MG TABLET PO (09:11)
[2024-12-01] MEDS: FAMOTIDINE INJ 10 MG/ML VIAL 2 ML 20 MG IVP (09:11)
[2024-12-01 09:18] VITALS: BP 156/80; PULSE 69
[2024-12-01] MEDS: LOSARTAN POTASSIUM 25 MG TABLET 50 MG PO (09:18)
[2024-12-01 12:00] VITALS: BP 142/82; PULSE 72; RESP 17; TEMP 36.3; O2SAT 98
--- NOTE | 2024-12-01 13:49 | PD.RESPRO ---
Documentation for date of: 12/01/24 Subjective Subjective Interval history: Patient seen today at the bedside found awake, alert, orientedx3. No overnight events reported. No active complaints at this time. Vitals and labs reviewed. Blood cultures have been negative in the past 48 hours. Will continue with ceftriaxone and doxycycline, pending ID recommendations in regards to PICC line placement with IV antibiotics versus p.o. antibiotics. Will await further recommendations. Exam Vital Signs Temp Pulse Resp BP Pulse Ox O2 Del Method 97.1 F 69 17 156/80 H 97 Room Air 12/01/24 08:00 12/01/24 09:18 12/01/24 08:00 12/01/24 09:18 12/01/24 08:00 12/01/24 08:00 Objective Labs 12/01/24 05:11 12/01/24 05:11 Labs: Laboratory Results - last 24 hr 12/01/24 05:11 WBC 6.8 RBC 4.62 Hgb 15.3 Hct 43.2 MCV 94 MCH 33.1 MCHC 35.4 RDW Std Deviation 42.6 Plt Count 229 Neut % (Auto) 62 Lymph % (Auto) 28 [place] % (Auto) 6 Eos % (Auto) 4 Baso % (Auto) 0 Neut # (Auto) 4.2 Lymph # (Auto) 1.9 [place] # (Auto) 0.4 Eos # (Auto) 0.3 Baso # (Auto) 0.0 Immature Gran # (Auto) 0.02 H Absolute Nucleated RBC 0.00 Immature Gran % 0 Nucleated RBC % 0 ESR 12 Sodium 139 Potassium 4.0 Chloride 105 Carbon Dioxide 22.8 Anion Gap 11 BUN 18 Creatinine 1.0 Estim Creat Clear Calc 63.8 eGFR > 60 BUN/Creatinine Ratio 18 Glucose 203 H Calculated Osmolality 285 Calcium 9.0 Corrected Calcium 9.0 Phosphorus 3.1 C-Reactive Prot, Quant < 0.5 Albumin 4.3 Procalcitonin 0.05 Hepatitis C Antibody Non Reactive Quality Measures Quality Measures none Assessment & Plan Assessment Current Active Medications: Generic Name Dose Route Start Last Admin Trade Name Freq PRN Reason Stop Dose Admin Acetaminophen 1,000 mg 12/01/24 08:33 Acetaminophen 500 Mg Tablet PO 12/28/24 17:58 Q6H PRN Fever >99 OR PAIN 1-3 Hydrocodone Bitart/Acetaminophen 1 tab 11/28/24 17:59 Hydrocodone/Apap 10/325 Tab PO 12/03/24 17:58 Q4H PRN PAIN SCALE 4-10(Mod-Sev Dextrose 50 ml 11/28/24 17:59 Dextrose 50%-Water Inj 50 Ml Syringe IV 12/28/24 17:58 Q15MIN PRN BG <50 OR BG <70 & pt unresponsive Doxycycline Hyclate 100 mg 11/28/24 21:00 12/01/24 09:11 Doxycycline 100 Mg Tablet PO 12/05/24 20:59 100 mg BID DAR Administration Famotidine 20 mg 11/28/24 21:00 12/01/24 09:11 Famotidine Inj 10 Mg/Ml Vial 2 Ml IVP 12/28/24 20:59 20 mg Q12HR DAR Administration Glucagon 1 mg 11/28/24 17:59 Glucagon Inj 1 Mg Vial IM Q15MIN PRN BG <70, and no IV access Hydralazine HCl 10 mg 11/28/24 19:05 11/30/24 05:01 Hydralazine Inj 20 Mg/Ml Vial IVP 12/28/24 19:14 10 mg Q6H PRN Administration SBP >165 Ceftriaxone Sodium/Dextrose 1 gm in 50 mls @ 100 mls/hr 11/28/24 18:05 12/01/24 09:11 Rocephin/D5w 1gm Iv Premix IV 12/05/24 18:04 100 mls/hr QDAY DAR Administration Insulin Glargine 10 unit 11/29/24 21:00 11/30/24 20:24 Insulin Glargine (Lantus) 5 Unit/0.05 Ml (Per 5 Units) SC 12/29/24 20:59 10 unit HS DAR Administration Insulin Human Lispro 0 unit 11/29/24 07:30 12/01/24 12:27 Insulin Lispro (Admelog) 1 Unit/0.01 Ml Unit SC 12/29/24 07:29 2 unit AC DAR Administration Protocol Losartan Potassium 50 mg 12/01/24 09:00 12/01/24 09:18 Losartan Potassium 25 Mg Tablet PO 12/31/24 08:59 50 mg QDAY DAR Administration Ondansetron HCl 4 mg 11/28/24 17:59 Ondansetron Inj 2 Mg/Ml Inj 2 Ml IVP 12/28/24 17:58 Q6H PRN NAUSEA OR VOMITING Protocol
--- NOTE | 2024-12-01 14:17 | ESPR_ITS ---
Subjective Subjective Interval history: osteo by mri with normal labs noted. Exam Vital Signs Temp Pulse Resp BP Pulse Ox O2 Del Method 97.4 F 72 17 142/82 H 98 Room Air 12/01/24 12:00 12/01/24 12:00 12/01/24 12:00 12/01/24 12:00 12/01/24 12:00 12/01/24 12:00 Narrative Exam exam relatively benign Objective - Internal Medicine Labs 12/01/24 05:11 12/01/24 05:11 Labs: Laboratory Results - last 24 hr 12/01/24 05:11 WBC 6.8 RBC 4.62 Hgb 15.3 Hct 43.2 MCV 94 MCH 33.1 MCHC 35.4 RDW Std Deviation 42.6 Plt Count 229 Neut % (Auto) 62 Lymph % (Auto) 28 [place] % (Auto) 6 Eos % (Auto) 4 Baso % (Auto) 0 Neut # (Auto) 4.2 Lymph # (Auto) 1.9 [place] # (Auto) 0.4 Eos # (Auto) 0.3 Baso # (Auto) 0.0 Immature Gran # (Auto) 0.02 H Absolute Nucleated RBC 0.00 Immature Gran % 0 Nucleated RBC % 0 ESR 12 Sodium 139 Potassium 4.0 Chloride 105 Carbon Dioxide 22.8 Anion Gap 11 BUN 18 Creatinine 1.0 Estim Creat Clear Calc 63.8 eGFR > 60 BUN/Creatinine Ratio 18 Glucose 203 H Calculated Osmolality 285 Calcium 9.0 Corrected Calcium 9.0 Phosphorus 3.1 C-Reactive Prot, Quant < 0.5 Albumin 4.3 Procalcitonin 0.05 Hepatitis C Antibody Non Reactive Assessment & Plan A&P Narrative presumptive osteo of foot by mri with no pos micro noted. dm, a1c 9.6 noted. needs rx other problems as noted ideally we have a culture of the affected area to guide rx. w/o quality micro, then favor po rx with a PO quinolone ( levaquin 750/day ok) for 6 weeks with f/u clinically at end of rx xrays and mri will take longer to normalize. do cbc, renal panel, esr q 2 weeks on po rx. no need for outpt ID f/u. see primary. Time Spent With Patient Time: Total time spent is greater than 50% in coordination of care (as documented) at patient's floor/unit and/or counseling patient:
--- NOTE | 2024-12-01 14:39 | ESDS_ITS ---
<Statement entered by Keila Matute DO - 12/02/24 07:34> I, Keila Matute DO, attest that I was physically present for the michael portions of the service and evaluated the patient with the resident and I reviewed and discussed the case with the resident and agree with the resident's findings and plans of care as documented above <Statement entered by Efren Russo MD - 12/01/24 15:52> Patient was examined with the team including attending physician. Note reviewed, I agree with the discharge plan as documented. - Efren Russo MD PGY2 Disclaimer: The document may contain phonetic/typographic errors due to voice recognition software. Planned Discharge Date 12/01/24 DS: Providers Provider Date of admission: 11/28/24 17:55 Primary care physician: Physician Melanie Primary/Family Admitting Provider: Keila Matute DO Attending Provider on Admission: Keila Matute DO Consults: 11/28/24 18:03 Consult to Infectious Diseases Routine Comment: Consulting Provider: Momo Rahman Attending Provider on DC: Keila Matute DO Discharging Provider: Harvinder Queen MD Anticipated date of discharge: 12/01/24 DS: Diagnosis Problem List Completed Was Problem List Reviewed/Reconciled?: Yes Hospital Course Hospital Course Hospital course: 69-year-old male with past medical history of hypertension, diabetes who presented to the ED due to right foot pain. Patient was admitted for osteomyelitis of the right foot first phalanx. During hospital stay patient was managed with IV antibiotics, wound care. ID specialist was consulted and provided recommendations for at the time of discharge. At the time of discharge patient will be discharged with Levaquin 750 mg daily for total 6 weeks end date being January 04, 2025. At this time patient is medically stable for discharge. Recommended to follow- up with primary care physician within 1 week of discharge. Continue antibiotic Levaquin 750 mg daily for 6 weeks until January 04, per ID recommendations. You have been prescribed metformin 1000 mg daily for diabetes and losartan 50 mg daily for kidney protection and blood pressure control. Should any symptoms recur or worsen patient is instructed to return to the ED. Problem list: #Right first phalanx osteomyelitis #Hypertensive urgency?resolved #Type II ssy-[id number]-[id number] diabetes #Medication compliance Case discussed with my senior Dr. Russo and my attending Dr. Giovani Queen MD PGY-1 Status at Discharge Functional status at discharge: independent ambulation Overall status at discharge: patient is back to baseline Time Spent with Patient Time attestation: Total time spent providing and/or coordinating discharge services: Time spent: Greater than 30 minutes Exam Vital Signs Temp Pulse Resp BP Pulse Ox O2 Del Method 97.4 F 72 17 142/82 H 98 Room Air 12/01/24 12:00 12/01/24 12:00 12/01/24 12:00 12/01/24 12:00 12/01/24 12:00 12/01/24 12:00 Narrative Exam Physical Exam GENERAL: NAD, AAOx3 HEENT: Moist mucosa. Eyes open, symmetrical, & clear CARDIO: Heart RRR, no obvious murmurs PULM: No noted coughing/dyspnea CTA B/L, no R/W/R GI: Abdomen soft, nondistended, no pain on palpation. BSx4 SKIN/MSK/EXT: punctate lesion over distal aspect of right big toe, dry and without drainage. healed cut over third right digit. Dressing over right foot is CDI. NEURO: AAOx3, no focal neuro deficits, able to move all 4 extremities Discharge Plan Plan Patient Disposition: HOME (Self Care) Patient condition on transfer: Stable Care Plan Goals: Follow up with primary care physician within 1 week of discharge You have been prescribed levaquin 750mg a day for a total of 6 weeks, end date: january 04 You have been prescribed metformin for diabetes, losartan for kidney protection and blood pressure control, please take these medications as prescribed. F/u with cbc, renal panel, esr q 2 weeks for monitoring of osteomyelitis improvement Should any symptoms recur or worsen patient is instructed to return to the ED. Prescriptions/Referrals Prescriptions/Med Rec: New levofloxacin 750 mg tablet 750 mg PO QDAY 42 Days Qty: 42 0RF metformin 1,000 mg tablet 1,000 mg PO QDAY Qty: 30 0RF losartan 50 mg tablet 50 mg PO QDAY Qty: 30 0RF Referrals: No Primary/Family,Physician [Primary Care Provider] - Patient/Caregiver Discharge Instructions Other Discharge Activity Instructions:: Please call to follow up at [facility] with Dr. Cronin: [address] [place] [address] Print Language: Chadian Stand Alone Forms: Lexi Award Info., Patient Portal Info Letter Discharge Order Discharge Orders: Discharge (Routine); Ordered 12/01/24 Ordered By: Harvinder Queen Quality Discharge Quality Measures VTE prophylaxis
[2024-12-01 16:00] VITALS: BP 148/70; PULSE 80; RESP 16; TEMP 36.2; O2SAT 98
--- NOTE | 2024-12-01 20:34 | ESCONSULT_ITS ---
RE: GAYATHRI ROLLINS : 1955 DATE OF CONSULTATION: 11/28/2024 REFERRING PHYSICIAN: Dr. Matute, hospitalist. REASON FOR CONSULTATION: Osteomyelitis of the right foot. HISTORY OF PRESENT ILLNESS: The patient is an unfortunate 69-year-old man. He is diabetic with a blood sugar that is rather high but no A1c on file. His surgical history is none. His allergies are none noted. The patient's last tetanus was 1-2 years ago. He does take vaccine for several years and has had two COVID vaccines and has not had pneumococcal vaccines. FAMILY HISTORY: His father from diabetes complications. SOCIAL HISTORY: He lives at home with his and one other person. He is a nonsmoker. PHYSICAL EXAMINATION: GENERAL: The patient is awake, alert, cooperative, not ill-appearing. . There is obvious signs of infection in his foot. Dressing was removed and not replaced. see images of foot on file . The patient was somewhat but was not ill- appearing otherwise. His pulses were diminished diffusely. 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 RECOMMENDATIONS: 1. If the patient has elevated inflammatory markers, we may give him intravenous treatment with Rocephin 2 g intravenous daily and Doxycycline 100 mg p.o. b.i.d. both for 6 weeks. 2. On the other hand, if his inflammatory markers sedimentation rate and C- reactive protein are normal, we may look at oral therapy with Levaquin 750 mg daily for 6 weeks. 3. It looks like his sedimentation rate and C-reactive protein are normal, so if that is the case, we may be able to switch him to oral therapy and get him home as soon as possible. He is okay with that. I will look forward to see him again on a as p.r.n. basis we have a significant back log in clinic. I can see him only in the hospital because that is where I have most of my followups. DT: 16:45:07 TT: 20:16:00 Ref: [id number] - TID: [id number] MTDD
== END 2024-12-01 16:33 | disposition home or self-care (01) | DRG 638 ==
LOC: SERX 17:51 → S3NX 11-29 07:44 → SERHOLD 11-30 06:27
PROVIDERS: Internal Medicine Infectious Disease; Nurse Practitioner Family; Student in an Organized Health Care Education/Training Program; Admitting Provider Internal Medicine; Emergency Provider Family Medicine; Visit Provider Internal Medicine
DX: E11.69 Type 2 diabetes mellitus with other specified complication (principal); K57.32 Diverticulitis of large intestine without perforation or abscess without bleeding; M86.171 Other acute osteomyelitis, right ankle and foot; I16.0 Hypertensive urgency; Z79.84 Long term (current) use of oral hypoglycemic drugs; Z91.199 Patient's noncompliance with other medical treatment and regimen due to unspecified reason; E11.65 Type 2 diabetes mellitus with hyperglycemia; I10 Essential (primary) hypertension; M19.079 Primary osteoarthritis, unspecified ankle and foot; Z79.899 Other long term (current) drug therapy; Z91.148 Patient's other noncompliance with medication regimen for other reason
CPT/HCPCS: 36415; 73630; 73718; 80053; 80061; 80069; 83036; 84145; 84443; 85025; 85652; 86140; 86803; 87040; 87081; 96365; 99285; J0360; J0696; J1815; J3490; J7030; S0077; A9270; J0737

== ENCOUNTER → 2024-12-27 | Outpatient (CLI) | payer MEDICARE, SELFPAY ==
[2024-12-27 08:43] LABS: Basophils % (Auto) 1 % (0-2.5); Eosinophils # (Auto) 0.4 Thou/mm3 (0.0-0.5); Eosinophils % (Auto) 8 % (0-10); Hemoglobin 13.2 g/dL (13.5-16.0); Immature Granulocytes % (Auto) 0 % (0-0); Immature Granulocytes Auto 0.02 Thou/mm3 (0.00-0.00); Lymphocytes # (Auto) 1.6 Thou/mm3 (1.0-4.8); Lymphocytes % (Auto) 30 % (10-50); Mean Corpuscular HGB Conc 34.7 g/dl (31.0-37.0); Mean Corpuscular Hemoglobin 32.4 pg (25.0-35.0); Mean Corpuscular Volume 93 fL (80-100); Monocytes # (Auto) 0.3 Thou/mm3 (0.0-0.8); Monocytes % (Auto) 6 % (0-12); Neutrophils # (Auto) 2.8 Thou/mm3 (1.8-7.7); Neutrophils % (Auto) 55 % (37-80); Nucleated Red Blood Cell % 0 /100 WBC (0); Platelet Count 180 Thou/mm3 (140-440); RDW Standard Deviation 41.1 fL (35.1-43.9); Red Blood Count 4.08 Miln/mm3 (4.50-5.90); White Blood Count 5.1 Thou/mm3 (3.8-10.6)
[2024-12-27 08:55] LABS: Creatinine MALB Rnd Ur 72 mg/dL (30-125); Microalbumin Creat Ratio 107 mg/gCrea (<30); Microalbumin, Random Urine 77 mg/L (0-300)
[2024-12-27 08:58] LABS: Alanine Aminotransferase 14 U/L (10-49); Albumin/Globulin Ratio 1.6 (1.2-2.2); Alkaline Phosphatase 70 U/L (46-116); Anion Gap 7 (7-16); Aspartate Amino Transferase 20 U/L (0-34); BUN/Creatinine Ratio 22 Ratio (12-20); Bilirubin,Total 0.5 mg/dL (0.3-1.2); Blood Urea Nitrogen 26 mg/dL (9-23); Calcium 8.9 mg/dL (8.3-10.6); Calcium (Corrected) 8.9 mg/dL (8.5-10.1); Carbon Dioxide 26.2 mMol/L (20.0-31.0); Cardiac Risk Estimate 3.1 RATIO (4.0-6.7); Chloride 106 mMol/L (98-107); Cholesterol 144 mg/dL (132-200); Creatinine (Component) 1.2 mg/dL (0.6-1.3); Free T4 (Free Thyroxine) 1.17 ng/dL (0.89-1.76); Globulin 2.5 gm/dL (2.3-3.5); Glucose 154 mg/dL (74-106); HDL Cholesterol 47 mg/dL (40-60); LDL Cholesterol,Calculated 82 mg/dL (0-130); Magnesium 1.3 mg/dL (1.6-2.6); Osmolality,Calculated 285 (275-295); Potassium 4.6 mMol/L (3.4-5.1); Sodium 139 mMol/L (136-145); Thyroid Stimulating Hormone 1.31 uIU/mL (0.55-4.78); Total Protein 6.5 gm/dL (5.7-8.2); Triglycerides 75 mg/dL (30-150); eGFR > 60 See Note
[2024-12-27 09:25] LABS: Glucose Estimated Average 189 mg/dL (80-131); Hemoglobin A1C 8.2 % Hgb (4.8-6.0)
== END | disposition home or self-care (01) ==
PROVIDERS: PCP Registered Nurse Community Health; Referring Provider Registered Nurse Community Health; Visit Provider Registered Nurse Community Health
DX: I12.9 Hypertensive chronic kidney disease with stage 1 through stage 4 chronic kidney disease, or unspecified chronic kidney disease (principal); E11.29 Type 2 diabetes mellitus with other diabetic kidney complication; N18.9 Chronic kidney disease, unspecified; E78.2 Mixed hyperlipidemia; E11.65 Type 2 diabetes mellitus with hyperglycemia
CPT/HCPCS: 36415; 80053; 80061; 82043; 82570; 83036; 83735; 84439; 84443; 85025